=== PATIENT | female | born 2000 | race Caucasian/White ===

== ENCOUNTER 2025-04-14 13:34 | Emergency (ER) | payer OTHER, SELFPAY ==
[2025-04-14 13:50] VITALS: BP 105/79; PULSE 65; RESP 18; TEMP 36.5; O2SAT 100
--- NOTE | 2025-04-14 13:55 | ED.GENADULT ---
HPI - General Adult General Stated complaint: Rash on R arm Time Seen by Provider: 04/14/25 13:55 Source: patient Mode of arrival: ambulatory Limitations: no limitations History of Present Illness HPI narrative: 24 y/o female presented for c/o rash to right forearm. Onset 3 days. Endorses itching and a nerve pain sensation at times. denies any drainage to the site. Started accutane one month ago, but she did stop it to see if it would improve the rash. Denies lip, tongue, or throat swelling, shortness of breath or wheezing. Denies changes to soap, detergent, lotion, or any other exposures. No one else in the house or any contacts with similar symptoms. Related Data Home Medications ?Medication ?Instructions ?Recorded ?Confirmed ?Last Taken ?Type atomoxetine 60 mg capsule 60 mg PO DAILY 04/14/25 04/14/25 Unknown History bupropion HCl PO 04/14/25 Unknown History isotretinoin PO 04/14/25 Unknown History sertraline .ROUTE 04/14/25 Unknown History Allergies Allergy/AdvReac Type Severity Reaction Status Date / Time No Known Allergies Allergy Verified 04/14/25 14:00 Review of Systems Review of Systems: per HPI [facility] Comments At time of signature, I have reviewed and agree with nursing past medical, surgical, social and family history unless otherwise noted. Please see nursing chart for further information. There is no relevant family history pertinent to the presenting complaint Exam Narrative: GENERAL: Well-appearing EYES: conjunctivae clear, and EOMI. ENT: Mucous membranes moist. Oropharynx without edema, erythema or lesions. NECK: Supple. No lymphadenopathy CHEST: Clear to auscultation. HEART: Regular rate and rhythm. SKIN: Warm, dry. clusters of erythematous papules noted to ulnar aspect of right wrist and dorsal forearm, nontender, no drainage NEURO: Alert and oriented x3. Course Course Level of Care: Express Care Visit MDM MDM Narrative Medical decision making narrative: Discussed physical exam findings most c/w viral exanthem. Advised supportive measures and signs/symptoms to go to the ER. Pt is appropriate for outpt treatment and f/u. Differential Diagnosis Differential Diagnosis: Viral exanthema, contact dermatitis, allergic dermatitis, eczema, urticaria, insect bites, impetigo, tinea, folliculitis Discharge Plan Discharge Clinical Impression: Dermatitis Patient Disposition: Home Condition: Stable Instructions: Viral Exanthem (ED) Additional Instructions: Take steroid and valacyclovir as directed. Benadryl cream as needed Cool compresses to the sites of itching, avoid hot water. Avoid scratching to reduce the risk of infection Follow up with your primary care provider as needed in 1 week Go to the ER for worsening symptoms or concerns (lip, tongue, throat swelling/itching, trouble breathing etc) Patient Language: [place] Prescriptions: New valacyclovir 1 gram tablet 1,000 mg PO Q8H 7 Days Qty: 21 0RF prednisone 20 mg tablet 20 mg PO DAILY Qty: 18 0RF Rx Instructions: take 3 tablets daily for 3 days, then 2 tablets daily for 3 days then 1 tablet daily for 3 days No Action sertraline .ROUTE bupropion HCl [Wellbutrin] PO isotretinoin [Accutane] PO atomoxetine 60 mg capsule 60 mg PO DAILY Follow-up/Referrals: UNKNOWN,DOCTOR [Primary Care Provider] Time of Disposition: 14:07
== END 2025-04-14 14:10 | disposition home or self-care (01) ==
PROVIDERS: Emergency Provider Nurse Practitioner Family
DX: L30.9 Dermatitis, unspecified (principal)
CPT/HCPCS: 99203; G0463